=== PATIENT | female | born 1965 | race African-American/Black ===

== ENCOUNTER 2021-03-19 07:52 | Outpatient (CLI) | payer MEDICARE | END 2021-03-19 07:53 | disposition home or self-care (01) | LOC: CSHMAMMO 07:52 | PROVIDERS: ATTEND Family Medicine | DX: Z12.31 Encounter for screening mammogram for malignant neoplasm of breast (principal) | CPT/HCPCS: 77063; 77067 ==

== ENCOUNTER 2023-07-28 14:04 | Outpatient (CLI) | payer MEDICARE | END 2023-07-28 14:05 | disposition home or self-care (01) | LOC: CSHMAMMO 14:04 | PROVIDERS: ATTEND Family Medicine | DX: Z12.31 Encounter for screening mammogram for malignant neoplasm of breast (principal); Z80.3 Family history of malignant neoplasm of breast | CPT/HCPCS: 77063; 77067 ==

== ENCOUNTER 2024-10-11 10:18 | Outpatient (CLI) | payer MEDICARE | END 2024-10-11 10:19 | disposition home or self-care (01) | LOC: CSHULT 10:18 | PROVIDERS: ATTEND Nurse Practitioner Family | DX: R10.30 Lower abdominal pain, unspecified (principal); D25.9 Leiomyoma of uterus, unspecified; N28.89 Other specified disorders of kidney and ureter | CPT/HCPCS: 76700; 76856 ==

== ENCOUNTER 2024-11-10 08:22 | Outpatient (CLI) | payer MEDICARE | END 2024-11-10 08:23 | disposition home or self-care (01) | LOC: CSHCT 08:22 | PROVIDERS: ATTEND Family Medicine | DX: N28.89 Other specified disorders of kidney and ureter (principal); N20.0 Calculus of kidney; M47.816 Spondylosis without myelopathy or radiculopathy, lumbar region; M43.16 Spondylolisthesis, lumbar region | CPT/HCPCS: 74170; 82565 ==

== ENCOUNTER 2025-06-14 08:02 | Outpatient (CLI) | payer MEDICARE | END 2025-06-14 08:03 | disposition home or self-care (01) | LOC: CSHULT 08:02 | PROVIDERS: ATTEND Nurse Practitioner Family | DX: N39.41 Urge incontinence (principal) | CPT/HCPCS: 76700 ==